=== PATIENT | male | born 1950 | race Caucasian/White ===

== ENCOUNTER 2017-06-29 09:53 | Emergency (ER) | payer MEDICARE, OTHER ==
[2017-06-29 10:18] VITALS: TEMP 98.6
[2017-06-29 10:54] LABS: APPEARANCE,URINE Clear; BILIRUBIN,URINE NEGATIVE (NEGATIVE); COLOR,URINE Yellow; GLUCOSE, URINE (UA) 3+ (NEGATIVE); KETONES,URINE NEGATIVE (NEGATIVE); LEUKOCYTE ESTERASE ,URINE NEGATIVE (NEGATIVE); NITRATE,URINE NEGATIVE (NEGATIVE); OCCULT BLOOD,URINE 1+ (NEG-TRACE); PH,URINE 6.5; UROBILINOGEN,URINE 0.2 (0.2-1.0 EU)
[2017-06-29 11:10] LABS: RBC,URINE NEGATIVE (0-3AV/HPF); WBC,URINE 0-3 (0-5AV/HPF)
[2017-06-29 12:31] VITALS: RESP 18
[2017-06-29 12:50] VITALS: BP 155/108; PULSE 90; O2SAT 96
== END 2017-06-29 12:25 | DRG 536 ==
LOC: ED 09:53
DX: S32.591A Other specified fracture of right pubis, initial encounter for closed fracture (principal); L40.9 Psoriasis, unspecified; W19.XXXA Unspecified fall, initial encounter; R40.2362 Coma scale, best motor response, obeys commands, at arrival to emergency department; R40.2142 Coma scale, eyes open, spontaneous, at arrival to emergency department
CPT/HCPCS: 73501; 81001; 99283